=== PATIENT | female | born 1940 | race Two or more races ===

== ENCOUNTER 2016-11-07 09:54 | Emergency (ER) | payer MEDICARE ==
--- NOTE | 2016-11-07 10:27 | ED Physician Chart ---
Chief Complaint/HPI - Patient Information Date Seen:: 11/07/16 Time Seen:: 10:06 Chief Complaint:: ACUTE HEADACHE THIS AM History of Present Illness:: The patient awoke this am and was feeling well. After she ate breakfast she stood up and experienced generalized weakness, shaking in her upper extremities and became diaphoretic. She had gradual onset of an occipital headache that lasted about 90 minutes and then spontaneously resolved. The pt rated the pain as a 7/10 severity and said it was dull. the patient has had 5 to 6 similar episodes over the past 6 months. 2 wks ago she had a similar episode and went to [facility]. She had a CT scan of the head done there and she was told it looked normal. With the episode 2 weeks ago she was hypertensive with a BP systolic over 200. The patients sister 3 days ago in [place]. The patient is symptom free at this time. The pt denies any recent head trauma. Allergies:: Allergies Allergy/AdvReac Type Severity Reaction Status Date / Time Sulfa (Sulfonamide Allergy Verified 11/07/16 10:03 Antibiotics) Review of Systems - Review of Systems General/Constitutional: No fever, No chills, Weakness, Diaphoresis, No loss of appetite Skin: No skin lesions, No rash, No bruising Head: Headache, Light headed Eyes: No loss of vision, No pain, No diplopia ENT: No earache, No sore throat, No tinnitus Neck: No neck pain, No swelling, No stiffness, No mass noted Cardio Vascular: No chest pain, No palpitations, No edema Pulmonary: No SOB, Cough, Sputum, No wheezing (The patient had an episode of bronchitis that was treated with albuterol MDI and antibiotics. sputum was white. NO hemoptysis) GI: Nausea (Nausea was mild and no vomiting.), No vomiting, No diarrhea, No pain , No constipation, No hematemesis G/U: No dysuria, No frequency, No hematuria Clinical Research Scientist: No abnormal vaginal bleed Musculoskeletal: No bone or joint pain, No back pain, No muscle pain Psychiatric: Other (On speaking with patient's physician he thinks there may be a mental component to the patients symptoms.) Hematopoietic: No bruising, No lymphadenopathy Allergic/Immuno: No urticaria, No angioedema Neurological: No syncope, No focal symptoms, Paresthesia (had paresthesia in RUE. has resolved.), Headache, No seizure, Dizziness, No confusion, No vertigo Family Medical History - Family Member Sister Ethnicity: Living Status: Physical Exam - Physical Examination General/Constitutional: Well-developed, well-nourished, Alert, No distress, Non- toxic appearing, Ambulatory Eyes: Lids, conjuctiva normal, PERRL, EOMI Other Eyes comments:: NO nystagmus. Fundi with sharp disc margins. NO hemorrhages or exudates appreciated. Skin: No rash, No skin lesions, No ecchymosis (No Petechiae Sushant writes), Well hydrated, No lymphadenopathy ENMT: External ears, nose nl, Nasal exam nl, Lips, teeth, gums nl, Oropharynx nl , Tonsils nl Other ENMT comments:: adequate oral hydration. Neck: Nontender, Full ROM w/o pain, No JVD, No nuchal rigidity, No mass, No stridor Respiratory: Nl effort/Exclusion, No Wheeze/Rhonchi/Rales Cardio Vascular: RRR, No murmur, gallop, rubs, NL S1 S2 Other Cardio Vascular comments:: Good pulses in all 4 extremities. GI: No tenderness/rebounding/guarding, No organomegaly, No hernia, Normal BS's, Nondistended, No mass/bruits, No McBurney tenderness Other GI comments:: Rectal exam deferred at my discretion. : No CVA tenderness Extremities: No tenderness or effusion, Full ROM, normal strength in all extremities Other Extremities comments:: MILD EDEMA OVER THE RT ANKLE. Neuro/Psych: Alert/oriented, DTR's symmetric, Normal sensory exam, Normal motor strength, Judgement/insight normal, Mood normal, Normal gait, No focal deficits Other Neuro/Psych comments:: Finger-nose and heel-forman testing normal. Gait was steady. Negative Rhomberg test. Misc: Normal back, No paraspinal tenderness Assessment - Assessment General Assessment: CASE SUMMARY: THIS 76 YEAR OLD FEMALE WAS BROUGHT TO THE ER BY HER SON BECAUSE OF SEVERE HEADACHE. PT WITH HX OF PRIOR EPISODES OF SAME HEADACHE. HAD A CT- SCAN OF THE HEAD WITHIN THE PAST 2 WEEKS THAT WAS UNREMARKABLE. HEADACHE SPONTANEOUSLY RESOLVED PRIOR TO ARRIVING IN THE ED. VITAL SIGNS: MILD HYPERTENSION. 2 WEEKS AGO PT HAD SYSTOLIC BP OVER 200 WHEN SHE WAS SEEN AT [facility] AND HAD A CT SCAN OF THE HEAD. NO FOCAL NEUROLOGIC DEFICIT. PT TO FOLLOW UP WITH PMD FOR EVALUATION OF HYPERTENSION. MDM DDX SEVERE HEADACHE: NOT SAH based on history and exam. NOT meningitis based on history and exam. Vertebral artery dissection considered but felt to be unlikely with no cranial nerve deficit and normal cerebellar testing. NOT epidural or subdural due to no history of recent head trauma. ED Septic Shock - . Is Septic Shock (SBP<90, OR Lactate>4 mmol\L) present?: No Reassessment (Disposition) - Reassessment Reassessment Condition:: Unchanged - Diagnosis Diagnosis:: HYPERTENSION, ACUTE HEADACHE, RESOLVED, MILD HYPONATREMIA FOLLOW UP WITH YOUR PRIMARY CARE PHYSICIAN THIS COMING WEEK FOR REEVALUATION OF YOUR HYPERTENSION. RETURNED TO THE EMERGENCY DEPARTMENT FOR ANY ONSET OF SLURRED SPEECH, DOUBLE VISION, DIFFICULTY SWALLOWING, OR LOCALIZED WEAKNESS OR NUMBNESS. You can also return for severe headache. You are - Aftercare/Follow up Instructions Aftercare/Follow-Up Instructions:: Counseled pt regarding lab results/diagnosis & need follow up - Patient Disposition Discharge/Transfer:: Home ED Discharge Plan - Patient Disposition Admit/Discharge/Transfer: PT DISCHARGED HOME Condition at Disposition: Improved Instructions: Hyponatremia, Hypertension, [id number]
[2016-11-07 12:18] LABS: % BASOPHILS 0.8 % (0.0-2.0); % EOSINOPHILS 0.6 % (0.0-5.0); % LYMPHOCYTES 15.7 % (20.0-50.0); % MONOCYTES 9.6 % (2.0-10.0); % NEUTROPHILS 73.3 % (40.0-80.0); HEMOGLOBIN 13.8 gm/dL (11.7-16.1); MEAN CELL VOLUME 91.6 fl (81-100); MEAN CORPUSCULAR HEMOGLOBIN 31.6 pg (27.0-31.0); MEAN CORPUSCULAR HGB CONC 34.5 pg (28.0-36.0); MEAN PLATELET VOLUME 9.8 fl; NEUTROPHILE ABSOLUTE 7.9 Th/cmm (1.8-8.0); PLATELET COUNT 202 Th/cmm (150-400); RED BLOOD COUNT 4.37 Mil/cmm (3.80-5.20); RED CELL DISTRIBUTION WIDTH 12.4 % (11.5-20.0); WHITE BLOOD COUNT 10.8 Th/cmm (4.8-10.8)
[2016-11-07 12:33] LABS: ANION GAP 12.7 (7.0-16.0); BUN - UREA NITROGEN 19 mg/dL (7-25); BUN/CREATININE RATIO 27.1; CALCIUM SERUM 9.4 mg/dL (8.6-10.3); CARBON DIOXIDE 28.8 mEq/L (21.0-31.0); CHLORIDE 93 mEq/L (98-107); CREATININE - SERUM 0.7 mg/dL (0.6-1.2); GLUCOSE 136 mg/dL (70-105); POTASSIUM SERUM 3.5 mEq/L (3.5-5.1); SODIUM SERUM 131 mEq/L (136-145)
== END 2016-11-07 13:07 | disposition home or self-care (01) ==
LOC: ER 09:54
DX: R51 Headache (principal); I10 Essential (primary) hypertension; E87.1 Hypo-osmolality and hyponatremia; Z88.2 Allergy status to sulfonamides
CPT/HCPCS: 99284; 36415; 36416; 82948; 85025; 80048; Q0162; Z7502